=== PATIENT | female | born 1970 | race Two or more races ===

== ENCOUNTER 2023-11-26 11:25 | Inpatient (IN) | payer MEDICAID ==
[~2023-11-26] VITALS: Ht 157.5 cm; Wt 89.0 kg
[2023-11-26] MEDS ORDERED: GABA-1181 PO (11:47)
[2023-11-26] MEDS ORDERED: FAMO20 PO (11:47)
[2023-11-26] MEDS ORDERED: FERR325T27 PO (11:47)
[2023-11-26] MEDS ORDERED: FOLI-130 PO (11:47)
[2023-11-26] MEDS ORDERED: FURO40 PO (11:47)
[2023-11-26] MEDS ORDERED: TRAM50TA5 PO (11:47)
[2023-11-26] MEDS ORDERED: ASPI-1450 PO (11:47)
[2023-11-26] MEDS ORDERED: MIDO5TAB29 PO (11:47)
[2023-11-26] MEDS ORDERED: SEVE800T7 PO (11:47)
[2023-11-26 12:06] LABS: BASOPHILS % (AUTO) 0.4 % (0.0-2.0); EOSINOPHILS % (AUTO) 6.4 % (1.0-6.0); HEMATOCRIT 26.8 % (36-46); HEMOGLOBIN 9.2 g/dL (12.0-16.0); LYMPHOCYTES # (AUTO) 1.7 K/uL (1.0-4.8); LYMPHOCYTES % (AUTO) 26.5 % (22.0-44.0); MEAN CORPUSCULAR HEMOGLOBIN 31.7 pg (26.0-34.0); MEAN CORPUSCULAR HGB CONC 34.2 G/dL (31.0-37.0); MEAN CORPUSCULAR VOLUME 93 fL (80-100); MONOCYTES # (AUTO) 0.3 K/uL (0.1-1.0); MONOCYTES % (AUTO) 4.3 % (2.0-9.0); NEUTROPHILS # (AUTO) 3.9 K/uL (1.8-7.7); NEUTROPHILS % (AUTO) 62.4 % (40.0-70.0); PLATELET COUNT (AUTO) 220 K/uL (150-450); RED BLOOD CELL COUNT(AUTO) 2.89 MIL/uL (4.00-5.20); RED CELL DISTRIBUTION WIDTH 15.9 % (11.5-14.5); WHITE BLOOD COUNT (AUTO) 6.3 K/uL (4.5-11.0)
[2023-11-26 12:18] LABS: PROTHROMBIN TIME 10.2 SEC (9.4-11.6)
[2023-11-26 12:22] LABS: CREATININE 8.94 mg/dL (0.60-1.30); POTASSIUM 3.8 mmol/L (3.5-5.1)
[2023-11-26 12:27] LABS: ALBUMIN 3.4 g/dL (3.4-5.0); BILIRUBIN,TOTAL 0.3 mg/dL (0.1-1.0); TOTAL PROTEIN, SERUM 7.9 g/dL (6.4-8.2)
[2023-11-26 12:28] LABS: TROPONIN I-HIGH SENSITIVITY 5 ng/L (<51)
[2023-11-26] MEDS ORDERED: ONDANSETRON HCL 4 MG/2 ML VIAL IVP PRN (13:45)
[2023-11-26] MEDS: HEPARIN SODIUM,PORCINE 5,000 UNITS/ML VIAL SQ SCH (15:06)
[2023-11-26] MEDS: MIDODRINE HCL 5 MG TABLET PO SCH (16:13)
[2023-11-26 16:26] LABS: APPEARANCE,URINE CLEAR (CLEAR); BILIRUBIN,URINE NEGATIVE (NEGATIVE); COLOR,URINE LIGHT YELLOW (YELLOW); GLUCOSE, URINE (UA) NEGATIVE (NEGATIVE); KETONES,URINE NEGATIVE (NEGATIVE); LEUKOCYTE ESTERASE ,URINE NEGATIVE (NEGATIVE); NITRATE,URINE NEGATIVE (NEGATIVE); OCCULT BLOOD,URINE NEGATIVE (NEGATIVE); PROTEIN,URINE 30-70 mg/dL (NEGATIVE); SPECIFIC GRAVITIY, URINE 1.011 (1.003-1.030); UROBILINOGEN,URINE <=1.0 mg/dL (<=1.0)
[2023-11-26] MEDS: DOCUSATE SODIUM 100 MG CAPSULE PO SCH (20:31)
[2023-11-26 21:40] VITALS: BP 119/76; PULSE 63; RESP 18; TEMP 98.2
[2023-11-26 21:45] VITALS: BP_SYST 109; BP_DIAS 68; BP_DIAS 81; PULSE 60; PULSE 65; RESP 16; RESP 18
[2023-11-26 22:15] VITALS: BP 121/78; PULSE 61; RESP 16
[2023-11-26 22:45] VITALS: BP 115/72; PULSE 60
[2023-11-26 23:15] VITALS: BP 106/70; PULSE 79; RESP 16
[2023-11-26 23:45] VITALS: BP 92/64; PULSE 70; RESP 16
[2023-11-27 00:15] VITALS: BP 101/65; PULSE 72; RESP 16
[2023-11-27 00:30] VITALS: BP 103/71; PULSE 80; RESP 16
[2023-11-27 03:44] VITALS: BP 112/79; PULSE 66; RESP 18; TEMP 98.4
[2023-11-27] MEDS: TraMADol HCL 50 MG TABLET PO PRN (06:54)
[2023-11-27] MEDS: FAMOTIDINE 20 MG TABLET PO SCH (08:24)
[2023-11-27] MEDS: ASPIRIN 81 MG CHEWABLE TABLET PO SCH (08:24)
[2023-11-27 09:04] VITALS: BP 95/71; PULSE 64; RESP 20; TEMP 97.9
[2023-11-27] MEDS: FOLIC ACID/VIT B COMPLEX AND C TABLET PO SCH (13:13)
[2023-11-27 15:45] VITALS: BP 100/71; PULSE 64; RESP 20; TEMP 98.1
[2023-11-27 19:20] VITALS: BP 105/69; PULSE 65; RESP 18; TEMP 98
[2023-11-28] VITALS (11 sets, daily range): BP systolic 98–128; BP diastolic 55–82; PULSE 58–79; RESP 16–18; TEMP 96.8–98
[2023-11-28 05:07] LABS: HEPATITIS C AB (EIA) Non Reactive (Non Reactive)
[2023-11-28 07:55] LABS: % IRON SATURATION 93.8 % (22-44)
[2023-11-28] MEDS ORDERED: SODIUM CHLORIDE 0.9% 1,000 ML ONE (15:02)
[2023-11-29 04:29] VITALS: BP 94/63; PULSE 69; RESP 18; TEMP 97.9
[2023-11-29 08:03] VITALS: BP 91/62; PULSE 63; RESP 19; TEMP 98.1
[2023-11-29] MEDS: EPOETIN ALFA 10,000 UNITS/ML VIAL SQ SCH (08:10)
[2023-11-29] MEDS ORDERED: HEPARIN SODIUM,PORCINE 1,000 UNITS/ML VIAL IVP ONE (13:29)
== END 2023-11-29 13:30 | disposition home or self-care (01) | DRG 470 ==
LOC: EMS 11:25 → 6S 21:01
PROVIDERS: ADMIT Internal Medicine; ATTEND Internal Medicine
PROC: 5A1D70Z Performance of Urinary Filtration, Intermittent, Less than 6 Hours Per Day (ICD-10-PCS; principal; 2023-11-26)
PROC: 5A1D70Z Performance of Urinary Filtration, Intermittent, Less than 6 Hours Per Day (ICD-10-PCS; 2023-11-28)
DX: I12.0 Hypertensive chronic kidney disease with stage 5 chronic kidney disease or end stage renal disease (principal); N18.6 End stage renal disease; E46 Unspecified protein-calorie malnutrition; E83.51 Hypocalcemia; I95.9 Hypotension, unspecified; D63.1 Anemia in chronic kidney disease; E83.39 Other disorders of phosphorus metabolism; E78.5 Hyperlipidemia, unspecified; N25.81 Secondary hyperparathyroidism of renal origin; R62.7 Adult failure to thrive; E66.9 Obesity, unspecified; Z88.6 Allergy status to analgesic agent; Z88.5 Allergy status to narcotic agent; Z99.2 Dependence on renal dialysis; Z79.899 Other long term (current) drug therapy; Z79.82 Long term (current) use of aspirin; Z68.35 Body mass index [BMI] 35.0-35.9, adult
CPT/HCPCS: 71045; 80053; 81003; 82550; 83540; 83550; 83880; 84484; 85025; 85610; 85730; 86704; 86706; 86803; 87340; 87481; 90935; 93005; 99285; G0378; J0885; J1644; J7030; 36415-L1; 36415-TC

== ENCOUNTER 2024-01-10 07:09 | Inpatient (IN) | payer MEDICAID ==
[2024-01-10] VITALS (10 sets, daily range): BP systolic 106–116; BP diastolic 67–74; PULSE 60–63; RESP 16–18; TEMP 98.1–98.6; O2SAT 98
[~2024-01-10] VITALS: Ht 160 cm; Wt 97.0 kg
[~2024-01-10 07:09] MED LIST: ASPI-1450 PO; FAMO20 PO; FOLI-130 PO; GABA-1181 PO; MIDO5TAB29 PO; SEVE800T7 PO
[2024-01-10 08:46] LABS: BASOPHILS % (AUTO) 0.5 % (0.0-2.0); EOSINOPHILS % (AUTO) 4.6 % (1.0-6.0); HEMATOCRIT 29.8 % (36-46); HEMOGLOBIN 10.2 g/dL (12.0-16.0); LYMPHOCYTES # (AUTO) 1.7 K/uL (1.0-4.8); LYMPHOCYTES % (AUTO) 30.2 % (22.0-44.0); MEAN CORPUSCULAR HEMOGLOBIN 32.3 pg (26.0-34.0); MEAN CORPUSCULAR HGB CONC 34.2 G/dL (31.0-37.0); MEAN CORPUSCULAR VOLUME 94 fL (80-100); MONOCYTES # (AUTO) 0.3 K/uL (0.1-1.0); MONOCYTES % (AUTO) 5.7 % (2.0-9.0); NEUTROPHILS # (AUTO) 3.3 K/uL (1.8-7.7); PLATELET COUNT (AUTO) 187 K/uL (150-450); RED BLOOD CELL COUNT(AUTO) 3.16 MIL/uL (4.00-5.20); RED CELL DISTRIBUTION WIDTH 16.7 % (11.5-14.5); WHITE BLOOD COUNT (AUTO) 5.5 K/uL (4.5-11.0)
[2024-01-10 09:04] LABS: CALCIUM, TOTAL 8.8 mg/dL (8.8-10.5); CREATININE 9.64 mg/dL (0.60-1.30); POTASSIUM 4.9 mmol/L (3.5-5.1)
[2024-01-10 09:10] LABS: ALBUMIN 3.2 g/dL (3.4-5.0); BILIRUBIN,TOTAL 0.3 mg/dL (0.1-1.0); TOTAL PROTEIN, SERUM 7.4 g/dL (6.4-8.2)
[2024-01-10] MEDS ORDERED: ONDANSETRON HCL 4 MG/2 ML VIAL IVP PRN (10:45)
[2024-01-10 10:54] LABS: PROTHROMBIN TIME 10.2 SEC (9.4-11.6)
[2024-01-10 11:15] LABS: APPEARANCE,URINE CLEAR (CLEAR); BILIRUBIN,URINE NEGATIVE (NEGATIVE); COLOR,URINE LIGHT YELLOW (YELLOW); GLUCOSE, URINE (UA) NEGATIVE (NEGATIVE); KETONES,URINE NEGATIVE (NEGATIVE); LEUKOCYTE ESTERASE ,URINE SMALL (NEGATIVE); NITRATE,URINE NEGATIVE (NEGATIVE); OCCULT BLOOD,URINE NEGATIVE (NEGATIVE); PROTEIN,URINE 30-70 mg/dL (NEGATIVE); SPECIFIC GRAVITIY, URINE 1.011 (1.003-1.030); UROBILINOGEN,URINE <=1.0 mg/dL (<=1.0)
[2024-01-10 11:22] LABS: BACTERIA,URINE Moderate /HPF (None Seen); RBC,URINE None Seen /HPF (0-2); SQUAMOUS EPITHELIAL CELL,UR Moderate /LPF (None Seen)
[2024-01-10] MEDS ORDERED: LIDOCAINE/PF 1% 30 ML VIAL ONE (11:29)
[2024-01-10] MEDS ORDERED: SODIUM BICARBONATE 50 MEQ/50 ML VIAL ONE (11:29)
[2024-01-10] MEDS ORDERED: MIDAZOLAM HCL 2 MG/2 ML VIAL ONE (11:55)
[2024-01-10] MEDS ORDERED: FentaNYL CITRATE PF 100 MCG/2 ML VIAL ONE (11:55)
[2024-01-10] MEDS ORDERED: IOHEXOL 300 MG/ML 50 ML VIAL ONE (11:56)
[2024-01-10] MEDS ORDERED: HEPARIN SODIUM,PORCINE 1,000 UNITS/ML VIAL IVP ONE (12:00)
[2024-01-10] MEDS: HEPARIN SODIUM,PORCINE 1,000 UNITS/ML 10 ML VIAL IARTER ONE (12:27)
[2024-01-10] MEDS: LIDOCAINE 1% 30 ML/SOD BICARB 8.4% 4 ML SQ ONE (12:28)
[2024-01-10] MEDS: FentaNYL CITRATE PF 100 MCG/2 ML VIAL IVP ONE (12:28)
[2024-01-10] MEDS: MIDAZOLAM HCL 2 MG/2 ML VIAL IVP ONE (12:28)
[2024-01-10] MEDS: SODIUM CHLORIDE 0.9% 500 ML IV ONE (12:43)
[2024-01-10] MEDS: IOHEXOL 300 MG/ML 50 ML VIAL IARTER ONE (12:45)
[2024-01-10] MEDS: DOCUSATE SODIUM 100 MG CAPSULE PO SCH (21:00)
[2024-01-10] MEDS: ACETAMINOPHEN 325 MG TABLET PO PRN (21:47)
[2024-01-11] VITALS: BP 106/61; PULSE 61; RESP 18; TEMP 98
[2024-01-11 04:00] VITALS: BP 114/65; PULSE 65; RESP 18; TEMP 97.7
[2024-01-11 07:38] VITALS: BP 95/58; PULSE 64; RESP 18; TEMP 98.3
[2024-01-11] MEDS ORDERED: FAMOTIDINE 20 MG TABLET PO SCH (09:00)
[2024-01-12] MEDS ORDERED: EPOETIN ALFA 10,000 UNITS/ML VIAL SQ SCH (09:00)
== END 2024-01-11 12:45 | disposition home or self-care (01) | DRG 466 ==
LOC: EMS 07:09 → 5S 12:26
PROVIDERS: ADMIT Internal Medicine; ATTEND Internal Medicine
PROC: 5A1D70Z Performance of Urinary Filtration, Intermittent, Less than 6 Hours Per Day (ICD-10-PCS; principal; 2024-01-10)
PROC: 0JW Subcutaneous Tissue and Fascia, Revision (ICD-10-PCS; 2024-01-10)
PROC: B51WYZZ Fluoroscopy of Dialysis Shunt/Fistula using Other Contrast (ICD-10-PCS; 2024-01-10)
DX: T82.41XA Breakdown (mechanical) of vascular dialysis catheter, initial encounter (principal); N18.6 End stage renal disease; I13.2 Hypertensive heart and chronic kidney disease with heart failure and with stage 5 chronic kidney disease, or end stage renal disease; E46 Unspecified protein-calorie malnutrition; D63.1 Anemia in chronic kidney disease; E83.39 Other disorders of phosphorus metabolism; E83.51 Hypocalcemia; E88.09 Other disorders of plasma-protein metabolism, not elsewhere classified; I50.9 Heart failure, unspecified; E66.01 Morbid (severe) obesity due to excess calories; N25.81 Secondary hyperparathyroidism of renal origin; R62.7 Adult failure to thrive; Z99.2 Dependence on renal dialysis; Y71.2 Prosthetic and other implants, materials and accessory cardiovascular devices associated with adverse incidents; Y84.1 Kidney dialysis as the cause of abnormal reaction of the patient, or of later complication, without mention of misadventure at the time of the procedure; Z88.6 Allergy status to analgesic agent; Z88.5 Allergy status to narcotic agent; Z68.37 Body mass index [BMI] 37.0-37.9, adult
CPT/HCPCS: 36245; 36556; 36578; 71045; 76000; 80053; 81001; 85025; 85610; 87086; 87186; 87340; 90935; 93005; 99285; J1644; J2250; J3010; J3490; Q9967; 36415-L1; 36415-TC

== ENCOUNTER 2024-04-08 07:59 | Inpatient (IN) | payer MEDICAID, OTHER ==
[2024-04-08] VITALS (9 sets, daily range): BP systolic 98–126; BP diastolic 60–78; PULSE 64–75; RESP 16–20; TEMP 97.5–97.7
[~2024-04-08] VITALS: Ht 172.7 cm; Wt 86.4 kg
[~2024-04-08 07:59] MED LIST changes: +SEVE800T38 PO; -SEVE800T7 PO
[2024-04-08] MEDS: ONDANSETRON HCL 4 MG/2 ML VIAL IVP ONE (09:28)
[2024-04-08] MEDS: HYDROmorphone HCL 2 MG/ML SYRINGE IVP ONE (09:28)
[2024-04-08 09:39] LABS: BASOPHILS % (AUTO) 0.3 % (0.0-2.0); EOSINOPHILS % (AUTO) 2.6 % (1.0-6.0); HEMATOCRIT 30.2 % (36-46); HEMOGLOBIN 10.2 g/dL (12.0-16.0); LYMPHOCYTES # (AUTO) 1.6 K/uL (1.0-4.8); LYMPHOCYTES % (AUTO) 17.9 % (22.0-44.0); MEAN CORPUSCULAR HEMOGLOBIN 32.4 pg (26.0-34.0); MEAN CORPUSCULAR HGB CONC 33.9 G/dL (31.0-37.0); MEAN CORPUSCULAR VOLUME 96 fL (80-100); MONOCYTES # (AUTO) 0.4 K/uL (0.1-1.0); MONOCYTES % (AUTO) 4.8 % (2.0-9.0); NEUTROPHILS # (AUTO) 6.5 K/uL (1.8-7.7); NEUTROPHILS % (AUTO) 74.4 % (40.0-70.0); PLATELET COUNT (AUTO) 260 K/uL (150-450); RED BLOOD CELL COUNT(AUTO) 3.16 MIL/uL (4.00-5.20); WHITE BLOOD COUNT (AUTO) 8.8 K/uL (4.5-11.0)
[2024-04-08 09:53] LABS: LIPASE 98 U/L (16-77)
[2024-04-08 10:03] LABS: TROPONIN I-HIGH SENSITIVITY Less Than 4 ng/L (<51)
[2024-04-08 10:10] LABS: B-TYPE NATRIURETIC PEPTIDE 86 pg/mL (0-100)
[2024-04-08 10:43] LABS: LACTIC ACID 1.3 mmol/L (0.4-2.0)
[2024-04-08 11:09] LABS: APPEARANCE,URINE CLEAR (CLEAR); BILIRUBIN,URINE NEGATIVE (NEGATIVE); COLOR,URINE LIGHT YELLOW (YELLOW); GLUCOSE, URINE (UA) NEGATIVE (NEGATIVE); KETONES,URINE NEGATIVE (NEGATIVE); LEUKOCYTE ESTERASE ,URINE TRACE (NEGATIVE); NITRATE,URINE NEGATIVE (NEGATIVE); OCCULT BLOOD,URINE TRACE (NEGATIVE); PROTEIN,URINE 100-200,SEE CONFIRM mg/dL (NEGATIVE); UROBILINOGEN,URINE <=1.0 mg/dL (<=1.0)
[2024-04-08 11:12] LABS: SULFOSALICYLIC ACID,URINE 2+ (Negative)
[2024-04-08 11:13] LABS: BACTERIA,URINE Many /HPF (None Seen); RBC,URINE 0-2 /HPF (0-2); WBC,URINE 0-2 /HPF (0-5)
[2024-04-08] MEDS ORDERED: HEPARIN SODIUM,PORCINE 1,000 UNITS/ML VIAL IVP ONE (12:00)
[2024-04-08 12:23] LABS: ANION GAP 20 mmol/L (8-16); CARBON DIOXIDE 21 mmol/L (22-29); CHLORIDE 98 mmol/L (98-107); CREATININE 13.24 mg/dL (0.60-1.30); GLOMERULAR FILTR. RATE CALC 3 mL/min (>60); GLUCOSE,RANDOM 91 mg/dL (70-110); POTASSIUM 5.1 mmol/L (3.5-5.1); SODIUM SERUM 139 mmol/L (136-145); UREA NITROGEN, BLOOD 82 mg/dL (7-18)
[2024-04-08] MEDS ORDERED: ZOLPIDEM TARTRATE 5 MG TABLET PO PRN (13:15)
[2024-04-08] MEDS ORDERED: ONDANSETRON HCL 4 MG/2 ML VIAL IVP PRN (13:15)
[2024-04-08] MEDS: HEPARIN SODIUM,PORCINE 5,000 UNITS/ML VIAL SQ SCH (16:37)
[2024-04-08] MEDS: ACETAMINOPHEN 325 MG TABLET PO PRN (16:45)
[2024-04-08] MEDS: DOCUSATE SODIUM 100 MG CAPSULE PO SCH (21:00)
[2024-04-09] VITALS: BP 109/70; PULSE 68; RESP 16
[2024-04-09] MEDS: MIDODRINE HCL 5 MG TABLET PO SCH (05:12)
[2024-04-09 06:38] VITALS: BP 94/52; PULSE 89; RESP 20; TEMP 98.2
[2024-04-09] MEDS: FAMOTIDINE 20 MG TABLET PO SCH (08:16)
[2024-04-09 08:18] VITALS: BP 98/53; PULSE 72; RESP 20; TEMP 95.4; TEMP 98.4
[2024-04-09] MEDS: EPOETIN ALFA 10,000 UNITS/ML 2 ML VIAL SQ SCH (12:30)
[2024-04-09 12:59] LABS: BASOPHILS % (AUTO) 0.3 % (0.0-2.0); EOSINOPHILS % (AUTO) 3.2 % (1.0-6.0); HEMATOCRIT 28.1 % (36-46); HEMOGLOBIN 9.5 g/dL (12.0-16.0); LYMPHOCYTES # (AUTO) 1.9 K/uL (1.0-4.8); LYMPHOCYTES % (AUTO) 30.7 % (22.0-44.0); MEAN CORPUSCULAR HEMOGLOBIN 32.4 pg (26.0-34.0); MEAN CORPUSCULAR HGB CONC 33.8 G/dL (31.0-37.0); MEAN CORPUSCULAR VOLUME 96 fL (80-100); MONOCYTES # (AUTO) 0.3 K/uL (0.1-1.0); MONOCYTES % (AUTO) 4.4 % (2.0-9.0); NEUTROPHILS # (AUTO) 3.7 K/uL (1.8-7.7); NEUTROPHILS % (AUTO) 61.4 % (40.0-70.0); PLATELET COUNT (AUTO) 230 K/uL (150-450); RED BLOOD CELL COUNT(AUTO) 2.93 MIL/uL (4.00-5.20); RED CELL DISTRIBUTION WIDTH 15.7 % (11.5-14.5)
[2024-04-09 13:05] LABS: CALCIUM, TOTAL 8.2 mg/dL (8.8-10.5); CREATININE 8.49 mg/dL (0.60-1.30); POTASSIUM 3.9 mmol/L (3.5-5.1)
[2024-04-09] MEDS: CefTRIAXone 1 GM/DEXTROSE 50 ML IV SCH (14:06)
[2024-04-09 14:52] VITALS: BP 96/51; PULSE 71; RESP 20; TEMP 98.5
[2024-04-09] MEDS ORDERED: CEPH-558 PO (16:49)
== END 2024-04-09 17:20 | disposition home or self-care (01) | DRG 282 ==
LOC: EMS 08:05 → EDBEDREQ 12:28 → EDH 13:04 → 6S 14:10
PROVIDERS: ADMIT Internal Medicine; ATTEND Internal Medicine
PROC: 5A1D70Z Performance of Urinary Filtration, Intermittent, Less than 6 Hours Per Day (ICD-10-PCS; principal; 2024-04-08)
DX: K85.90 Acute pancreatitis without necrosis or infection, unspecified (principal); R64 Cachexia; E83.51 Hypocalcemia; D63.1 Anemia in chronic kidney disease; E83.39 Other disorders of phosphorus metabolism; E88.09 Other disorders of plasma-protein metabolism, not elsewhere classified; N25.81 Secondary hyperparathyroidism of renal origin; R62.7 Adult failure to thrive; N28.1 Cyst of kidney, acquired; I13.11 Hypertensive heart and chronic kidney disease without heart failure, with stage 5 chronic kidney disease, or end stage renal disease; N18.6 End stage renal disease; Z99.2 Dependence on renal dialysis; Z68.28 Body mass index [BMI] 28.0-28.9, adult; Z88.5 Allergy status to narcotic agent; Z79.899 Other long term (current) drug therapy; Z79.82 Long term (current) use of aspirin
CPT/HCPCS: 51701; 71045; 74176; 80048; 81001; 81002; 83605; 83690; 83880; 84484; 85025; 87086; 87186; 87340; 90935; 93005; 99285; J0696; J0885; J1170; J1644; J2405; 36415-L1; 36415-TC

== ENCOUNTER 2025-03-31 18:10 | Inpatient (IN) | payer OTHER ==
[~2025-03-31] VITALS: Ht 157.5 cm; Wt 94.5 kg
[~2025-03-31 18:10] MED LIST changes: +CEPH-558 PO; -SEVE800T38 PO; +SEVE800T39 PO
[2025-03-31] MEDS ORDERED: ONDANSETRON HCL 4 MG/2 ML VIAL IVP PRN (18:30)
[2025-03-31] MEDS ORDERED: FOLI1TAB85 PO (18:36)
[2025-03-31] MEDS ORDERED: ASPI-1444 PO (18:36)
[2025-03-31 18:51] LABS: PLATELET COUNT (AUTO) 234 K/uL (150-450); RED BLOOD CELL COUNT(AUTO) 3.27 MIL/uL (4.00-5.20); RED CELL DISTRIBUTION WIDTH 15.7 % (11.5-14.5); WHITE BLOOD COUNT (AUTO) 7.0 K/uL (4.5-11.0)
[2025-03-31] MEDS: MAG HYDROX/ALUMINUM HYD/SIMETH 30 ML SUSPENSION UDCUP PO ONE (18:55)
[2025-03-31] MEDS: FAMOTIDINE 20 MG/2 ML VIAL IVP ONE (18:55)
[2025-03-31 18:57] LABS: CALCIUM, TOTAL 8.3 mg/dL (8.8-10.5); CREATININE 8.17 mg/dL (0.60-1.30); GLOMERULAR FILTR. RATE CALC 5 mL/min (>60); GLUCOSE,RANDOM 173 mg/dL (70-110); SODIUM SERUM 140 mmol/L (136-145); UREA NITROGEN, BLOOD 38 mg/dL (7-18)
[2025-03-31 19:01] LABS: ASPARTATE AMINOTRANSFERASE 12.0 U/L (15-37); CREATINE KINASE, TOTAL ONLY 46.0 U/L (26-192); TOTAL PROTEIN, SERUM 7.4 g/dL (6.4-8.2)
[2025-03-31 19:05] LABS: TROPONIN I-HIGH SENSITIVITY 6 ng/L (<51)
[2025-03-31] MEDS: DOCUSATE SODIUM 100 MG CAPSULE PO SCH (20:54)
[2025-03-31 21:50] VITALS: BP 99/67; PULSE 77; RESP 18; TEMP 97.9; O2SAT 96
[2025-03-31] MEDS: HEPARIN SODIUM,PORCINE 5,000 UNITS/ML VIAL SQ SCH (23:43)
[2025-03-31] MEDS: ACETAMINOPHEN 325 MG TABLET PO PRN (23:44)
[2025-04-01] VITALS (7 sets, daily range): BP systolic 88–112; BP diastolic 56–71; PULSE 69–80; RESP 18–19; TEMP 98.1–98.6; O2SAT 96–98
[2025-04-01 06:17] LABS: PLATELET COUNT (AUTO) 219 K/uL (150-450); RED BLOOD CELL COUNT(AUTO) 3.01 MIL/uL (4.00-5.20); RED CELL DISTRIBUTION WIDTH 15.8 % (11.5-14.5); WHITE BLOOD COUNT (AUTO) 4.9 K/uL (4.5-11.0)
[2025-04-01 06:51] LABS: CALCIUM, TOTAL 8.2 mg/dL (8.8-10.5); CREATININE 8.83 mg/dL (0.60-1.30); GLOMERULAR FILTR. RATE CALC 5.0 mL/min (>60); GLUCOSE,RANDOM 105.0 mg/dL (70-110); SODIUM SERUM 142.0 mmol/L (136-145); UREA NITROGEN, BLOOD 49.0 mg/dL (7-18)
[2025-04-01] MEDS: FAMOTIDINE 20 MG TABLET PO SCH (08:37)
[2025-04-01 11:07] LABS: TROPONIN I-HIGH SENSITIVITY 7 ng/L (<51)
[2025-04-02 01:00] VITALS: BP 102/60; PULSE 74; RESP 18; TEMP 97.7; O2SAT 99
[2025-04-02 04:40] VITALS: BP 106/65; PULSE 67; RESP 18; TEMP 97.9; O2SAT 99
[2025-04-02 07:39] VITALS: BP 99/68; PULSE 70; RESP 18; TEMP 97.7; O2SAT 97
[2025-04-02] MEDS: EPOETIN ALFA 10,000 UNITS/ML VIAL SQ SCH (09:17)
== END 2025-04-02 12:45 | disposition home or self-care (01) | DRG 203 ==
LOC: EMS 18:10 → EDH 18:30 → 5S 21:37
PROVIDERS: ADMIT Internal Medicine; ATTEND Internal Medicine
DX: R07.89 Other chest pain (principal); E46 Unspecified protein-calorie malnutrition; R64 Cachexia; N18.6 End stage renal disease; Q61.3 Polycystic kidney, unspecified; D63.1 Anemia in chronic kidney disease; E83.51 Hypocalcemia; E88.09 Other disorders of plasma-protein metabolism, not elsewhere classified; E83.39 Other disorders of phosphorus metabolism; E87.5 Hyperkalemia; E66.9 Obesity, unspecified; M19.012 Primary osteoarthritis, left shoulder; N25.81 Secondary hyperparathyroidism of renal origin; R62.7 Adult failure to thrive; Z88.5 Allergy status to narcotic agent; Z99.2 Dependence on renal dialysis; Z79.899 Other long term (current) drug therapy; Z79.82 Long term (current) use of aspirin; Z68.38 Body mass index [BMI] 38.0-38.9, adult
CPT/HCPCS: 71045; 80048; 80076; 82550; 83880; 84484; 85025; 85610; 85730; 87081; 93005; 93306; 96374; 97110; 97116; 97163; 97530; 99285; J0885; J1644; J3490; 36415-L1; 36415-TC